=== PATIENT | female | born 1995 | race Caucasian/White ===

== ENCOUNTER → 2017-02-21 | Outpatient (CLI) | payer BC, OTHER ==
[~2017-02-21] MED LIST: BCPILLS PO; BOTOX INJ; GABA-113 PO; GLC/500 PO; IBUP-1050 PO; LEVO88TA3 PO; MIDO2.5T PO; ONDA8TAB62 SL; PANT40TA PO; PROP10TA7 PO; PROP1TAB PO; RIZA1TAB11 PO; SNG10 PO; SODI0.9S; SODIINJ24 IV; TOPI100T20 PO; TOPI50TA16 PO; WLLSR/150 PO; [UNRECOGNIZED DRUG - CODE] TD
== END | disposition home or self-care (01) ==
LOC: C.PAPS 14:14
PROVIDERS: ATTEND Obstetrics & Gynecology
DX: Z01.419 Encounter for gynecological examination (general) (routine) without abnormal findings (principal)

== ENCOUNTER → 2017-02-21 | Outpatient (CLI) | payer BC, OTHER ==
[2017-02-21 12:13] LABS: PREG INTERNAL NEGATIVE QC NEG CLEAR BACKGROUND; PREG INTERNAL POSITIVE QC POS CONTROL LINE
== END | disposition home or self-care (01) ==
LOC: C.LAB1850 10:16
PROVIDERS: ATTEND Obstetrics & Gynecology
DX: N92.0 Excessive and frequent menstruation with regular cycle (principal)

== ENCOUNTER 2017-09-24 10:01 | Emergency (ER) | payer BC, OTHER ==
[~2017-09-24] VITALS: Ht 162.6 cm; Wt 98.8 kg
[~2017-09-24 10:01] MED LIST changes: -GLC/500 PO; -PANT40TA PO; -SODI0.9S; -TOPI100T20 PO; -TOPI50TA16 PO; -WLLSR/150 PO
[2017-09-24 10:20] VITALS: TEMP 36.9; Ht 162.6 cm; Wt 98.8 kg
[2017-09-24] MEDS ORDERED: KETOROLAC TROMETHAMINE 30 MG/ML VIAL IV STA (10:57)
[2017-09-24] MEDS ORDERED: GABA-112 PO (11:04)
[2017-09-24] MEDS ORDERED: VNTHFA/IN INH (11:04)
[2017-09-24] MEDS ORDERED: BUPR-79 PO (11:04)
[2017-09-24 11:35] LABS: BASO % 0.6 %; BASO ABS # 0.07 K/uL (0-0.2); EOS % 4.4 %; EOS ABS # 0.51 K/uL (0-0.5); HEMATOCRIT 42.2 % (37-47); HEMOGLOBIN 14.8 g/dL (12.0-16.0); IG# 0.05 K/uL (0.00-0.02); LYMPH % 25.1 %; LYMPH ABS # 2.93 K/uL (1.2-3.4); MEAN CELL VOLUME 87.6 fL (80-100); MEAN CORPUSCULAR HEMOGLOBIN 30.7 pg (25-34); MEAN CORPUSCULAR HGB CONC 35.1 g/dl (32-36); MEAN PLATELET VOLUME 9.3 fL (7.4-10.4); MONO % 5.4 %; MONO ABS # 0.63 K/uL (0.11-0.59); NEUT % 64.1 %; NEUT ABS # 7.47 K/uL (1.4-6.5); PLATELET COUNT 410 K/uL (130-400); RED CELL DISTRIBUTION WIDTH CV 12.7 % (11.5-14.5); RED CELL DISTRIBUTION WIDTH SD 40.6 fL (36.4-46.3); WHITE BLOOD COUNT 11.66 K/uL (4.8-10.8)
[2017-09-24 11:55] LABS: CALCIUM 9.5 mg/dl (8.5-10.1); CREATININE 0.7 mg/dl (0.60-1.20)
[2017-09-24 12:16] LABS: INFLUENZA A PCR Neg for Influ A (NEG); INFLUENZA B PCR Neg for Influ B (NEG)
--- NOTE | 2017-09-24 12:38 | DIAGNOSTIC IMAGING REPORT ---
CHEST 2 VIEWS ROUTINE HISTORY: 21 years-old Female cough, fever acute cough and fever COMPARISON: Chest radiograph 01/20/2015 TECHNIQUE: PA and lateral views of the chest FINDINGS: Cardiomediastinal and hilar silhouettes are within normal limits. Mild right hemidiaphragmatic elevation. No pneumothorax, pleural effusion, focal airspace consolidation or overt pulmonary edema. The bones of the chest appear grossly intact. Intramedullary stevenson of the right humerus noted with 2 proximal cannulated screws. IMPRESSION: No acute process. The above report was generated using voice recognition software. It may contain grammatical, syntax or spelling errors. Electronically signed by: Juan Antonio Constantino M.D. 09/24/2017 12:37 PM Dictated Date/Time: 09/24/2017 12:36 PM
[2017-09-24] MEDS ORDERED: HYDR5SYP11 PO (13:06)
--- NOTE | 2017-09-24 13:08 | EMERGENCY ROOM VISIT NOTE ---
History First contact with patient: 10:38 Chief Complaint: FLU LIKE SX Stated Complaint: CHEST PAIN, FEVER, COUGHING, SOB History of Present Illness The patient is a 21 year old female who presents to the Emergency Room with complaints of coughing and shortness of breath. The patient also admits to increased fatigue and a temperature yesterday of 100 even though she was taking Motrin. The patient states she started coughing up green and yellow sputum for the last several days. The patient also admits to head pressure and left ear pain. She also admits to sore throat. The patient was seen by her PCP on for these symptoms but they have been getting worse. She was given albuterol inhaler. The patient denies any history of asthma. Review of Systems 10 system review was performed and was negative unless stated otherwise history of present illness. Past Medical/Surgical History Medical Problems: (1) HYPOTHYROIDISM NOS (2) Open reduction of fracture (3) Polycystic ovaries (4) POTS Social History Smoking Status: Never Smoker Alcohol Use: none Drug Use: none Marital Status: single Occupation Status: student Current/Historical Medications Scheduled Albuterol Hfa (Ventolin Hfa), 2 PUFFS INH Q4H Control Pills ( Control Pills), 1 TAB PO DAILY Bupropion (Wellbutrin Sr), 150 MG PO BID Gabapentin (Neurontin), 100 MG PO HS Granisetron (Sancuso), 1 PATCH TD WK Levothyroxine Sodium (Levothyroxine Sodium), 88 MCG PO QAM Midodrine Hcl (Midodrine Hcl), 2.5 MG PO TID Montelukast Sod (Montelukast Sodium), 10 MG PO HS Propranolol (Inderal), 60 MG PO QAM Rizatriptan Benzoate (Rizatriptan Benzoate), 10 MG PO PRN/UD [Botox], 1 DOSE INJ [id number] Scheduled PRN Ibuprofen (Advil), 400 MG PO DAILY PRN for RN Ondansetron Odt (Zofran Odt), 8 MG SL Q6H PRN for Nausea Propranolol (Inderal), 10 MG PO TID PRN for Headache Physical Exam Vital Signs Date Time Temp Pulse Resp B/P (MAP) Pulse Ox O2 Delivery O2 Flow Rate FiO2 09/24/17 11:22 89 18 129/95 96 Room Air 09/24/17 10:20 36.9 98 18 128/85 97 Room Air Physical Exam PHYSICAL EXAM: Vital Signs were reviewed: Temperature 36.9, blood pressure 128/ 85, pulse 98, respirations 18 Reviewed Nurse's notes and agree. Oxygen saturation is 97 % on room air which is normal . GENERAL: 21-year-old female appears in no acute distress. MENTAL STATUS: Alert, oriented, coherent. EARS: Canals clear. TMs good light reflex, small amount of clear fluid noted bilaterally. NOSE: Nasal mucosa with moderate erythema engorgement. SINUSES: Both maxillary and frontal sinuses are tender to palpation. PHARYNX: Moderate erythema, no edema noted. No exudate noted. Airway is adequate. NECK: Supple, non-tender. No lymphadenopathy noted. LUNGS: Clear to auscultation without wheezes rales or rhonchi. CARDIAC: Regular rate and rhythm without murmur. SKIN : No rashes noted. Medical Decision & Procedures ER Provider Diagnostic Interpretation: CHEST 2 VIEWS ROUTINE HISTORY: 21 years-old Female cough, fever acute cough and fever COMPARISON: Chest radiograph 01/20/2015 TECHNIQUE: PA and lateral views of the chest FINDINGS: Cardiomediastinal and hilar silhouettes are within normal limits. Mild right hemidiaphragmatic elevation. No pneumothorax, pleural effusion, focal airspace consolidation or overt pulmonary edema. The bones of the chest appear grossly intact. Intramedullary stevenson of the right humerus noted with 2 proximal cannulated screws. IMPRESSION: No acute process. The above report was generated using voice recognition software. It may contain grammatical, syntax or spelling errors. Electronically signed by: Juan Antonio Constantino M.D. 09/24/2017 12:37 PM Laboratory Results 09/24/17 11:17 Red Blood Count 4.82, Mean Corpuscular Volume 87.6, Mean Corpuscular Hemoglobin 30.7, Mean Corpuscular Hemoglobin Concent 35.1, Mean Platelet Volume 9.3, Neutrophils (%) (Auto) 64.1, Lymphocytes (%) (Auto) 25.1, Monocytes (%) (Auto) 5.4, Eosinophils (%) (Auto) 4.4, Basophils (%) (Auto) 0.6, Neutrophils # (Auto) 7.47, Lymphocytes # (Auto) 2.93, Monocytes # (Auto) 0.63, Eosinophils # (Auto) 0.51, Basophils # (Auto) 0.07 09/24/17 11:17 Test 09/24/17 11:17 White Blood Count 11.66 K/uL (4.8-10.8) Red Blood Count 4.82 M/uL (4.2-5.4) Hemoglobin 14.8 g/dL (12.0-16.0) Hematocrit 42.2 % (37-47) Mean Corpuscular Volume 87.6 fL (80-100) Mean Corpuscular Hemoglobin 30.7 pg (25-34) Mean Corpuscular Hemoglobin Concent 35.1 g/dl (32-36) Platelet Count 410 K/uL (130-400) Mean Platelet Volume 9.3 fL (7.4-10.4) Neutrophils (%) (Auto) 64.1 % Lymphocytes (%) (Auto) 25.1 % Monocytes (%) (Auto) 5.4 % Eosinophils (%) (Auto) 4.4 % Basophils (%) (Auto) 0.6 % Neutrophils # (Auto) 7.47 K/uL (1.4-6.5) Lymphocytes # (Auto) 2.93 K/uL (1.2-3.4) Monocytes # (Auto) 0.63 K/uL (0.11-0.59) Eosinophils # (Auto) 0.51 K/uL (0-0.5) Basophils # (Auto) 0.07 K/uL (0-0.2) RDW Standard Deviation 40.6 fL (36.4-46.3) RDW Coefficient of Variation 12.7 % (11.5-14.5) Immature Granulocyte % (Auto) 0.4 % Immature Granulocyte # (Auto) 0.05 K/uL (0.00-0.02) Anion Gap 8.0 mmol/L (3-11) Est Creatinine Clear Calc Drug Dose 144.0 ml/min Estimated GFR () 142.5 Estimated GFR (Non- 123.0 BUN/Creatinine Ratio 18.6 (10-20) Calcium Level 9.5 mg/dl (8.5-10.1) Influenza Type A (RT-PCR) Neg for Influ A (NEG) Influenza Type B (RT-PCR) Neg for Influ B (NEG) Medications Administered Medications (Trade) Dose Ordered Sig/James Route Start Time Stop Time Status Last Admin Dose Admin Ketorolac Tromethamine (Toradol Inj) 30 mg NOW STAT IV 09/24/17 10:57 09/24/17 11:00 DC 09/24/17 11:20 30 MG ED Course The patient was evaluated. IV access was obtained. The patient was given Toradol 30 mg IV. CBC and differential, renal profile was ordered. Rapid strep was negative, culture is pending. Influenza was negative for influenza A and influenza B. Chest x-ray was ordered interpreted by the radiologist and myself without any acute findings. White count was slightly elevated at 11, 000. Remainder labs are unremarkable. The patient was informed of all findings and discharged home in stable condition. Medical Decision Differential diagnosis include influenza, bronchitis, pneumonia, viral URI [place] Drug Monitoring Program Search Results: patient reviewed within database Medication Reconcilliation Current Medication List: was personally reviewed by me Blood Pressure Screening Patient's blood pressure: Normal blood pressure Impression Primary Impression: Upper respiratory infection Departure Information Dispostion Home / Self-Care Condition GOOD Prescriptions Hydrocodone W/ Homatropine (HYCODAN 5/1.5MG 5 ML) 1 Syp Syp 5-10 ML PO Q4H Y for Cough, #200 ML Prov: Josiane Stinson, PA-C 09/24/17 Referrals Mauro Cheng M.D. (PCP) Forms HOME CARE DOCUMENTATION FORM, IMPORTANT VISIT INFORMATION Patient Instructions Common Cold - [facility], [facility] Additional Instructions Push fluids, rest. Recommend [id number] decongestant for 5 days. Continue all other medications. Continue albuterol inhaler as prescribed. May take [id number] Robitussin or Delsym for cough during the day but at night use Hycodan syrup that you can sleep. If symptoms persist or worsen, follow-up with your family doctor. Problem Qualifiers Primary Impression: Upper respiratory infection URI type: unspecified viral URI Qualified Codes: J06.9 - Acute upper respiratory infection, unspecified
[2017-09-24 13:46] VITALS: BP 119/84; PULSE 81; O2SAT 97
== END 2017-09-24 13:46 | disposition home or self-care (01) ==
LOC: C.EDB 10:05
DX: J06.9 Acute upper respiratory infection, unspecified (principal); E03.9 Hypothyroidism, unspecified; E28.2 Polycystic ovarian syndrome; Z79.899 Other long term (current) drug therapy

== ENCOUNTER → 2017-11-21 | Outpatient (CLI) | payer BC, OTHER ==
[~2017-11-21] MED LIST changes: +BUPR-79 PO; +GABA-112 PO; -GABA-113 PO; -SODIINJ24 IV; +VNTHFA/IN INH
[2017-11-21 14:58] LABS: BASO % 0.5 %; BASO ABS # 0.06 K/uL (0-0.2); EOS % 2.7 %; EOS ABS # 0.34 K/uL (0-0.5); HEMATOCRIT 42.5 % (37-47); HEMOGLOBIN 14.5 g/dL (12.0-16.0); IG# 0.02 K/uL (0.00-0.02); LYMPH % 22.6 %; LYMPH ABS # 2.89 K/uL (1.2-3.4); MEAN CELL VOLUME 87.3 fL (80-100); MEAN CORPUSCULAR HEMOGLOBIN 29.8 pg (25-34); MEAN CORPUSCULAR HGB CONC 34.1 g/dl (32-36); MEAN PLATELET VOLUME 9.8 fL (7.4-10.4); MONO % 6.9 %; MONO ABS # 0.88 K/uL (0.11-0.59); NEUT % 67.1 %; NEUT ABS # 8.58 K/uL (1.4-6.5); PLATELET COUNT 494 K/uL (130-400); RED CELL DISTRIBUTION WIDTH CV 12.7 % (11.5-14.5); RED CELL DISTRIBUTION WIDTH SD 40.7 fL (36.4-46.3); WHITE BLOOD COUNT 12.77 K/uL (4.8-10.8)
== END | disposition home or self-care (01) ==
LOC: C.LAB1850 12:45
PROVIDERS: ATTEND Physician Assistant
DX: N94.10 Unspecified dyspareunia (principal); N92.6 Irregular menstruation, unspecified